=== PATIENT | female | born 1975 | race American Indian/Alaskan Native ===

== ENCOUNTER 2016-12-07 11:37 | Emergency (ER) | payer MEDICARE ==
[2016-12-07 11:58] VITALS: BP 137/87
[2016-12-07] MEDS ORDERED: DELTASONE PO ONE (12:15)
[2016-12-07] MEDS ORDERED: DUONEB 0.5 MG-3 MG/3 ML SOLN IH ONE ×2 (12:16→12:22)
[2016-12-07] MEDS ORDERED: ROBITUSSIN DM PO ONE (12:23)
--- NOTE | 2016-12-07 12:53 | Emergency Department Report ---
Chief Complaint: Adult Asthma Stated Complaint: ASTHMA ATTACK/ CHEST PAIN /TIGHTNESS - HPI History of Present Illness: 41-year-old female past medical history asthma, hysterectomy presents with complaint of one week of worsening asthma exacerbation and wheezing despite using nebulizers at home patient coughing, states she has productive cough, denies fever chills, states that she feels very wheezy right now. Audible wheezing - ROS Review of Systems: 1 week with wheezing - Exam Vital Signs: Vital Signs 12/07/16 12/07/16 11:56 12:35 Temperature 98.1 F Pulse Rate 95 H Pulse Rate [ 82 Left Lower Lobe ] Respiratory 22 Rate Respiratory 18 Rate [Left Lower Lobe] Blood Pressure 137/87 O2 Sat by Pulse 96 Oximetry Physical Exam: Wheezing bilateral lung patterson MSE screening note: Focused history and physical exam performed. Due to findings the following was ordered: Screening Assessment/Plan/Differential Dx: Asthma exacerbation 1- This initial assessment/diagnostic orders/clinical plan/ treatment(s) is/are subject to change based on pt's health status, clinical progression and re- assessment by fellow clinical providers in the ED. Further treatment and workup at subsequent clinical provers discretion. Patient/guardians urged not to elope from ED as their condition may be serious if not clinically assessed and managed. 2-DuoNeb treatments, prednisone by mouth, guaifenesin 3-patient is had multiple hospitalizations in the past for asthma patient for the main ER 4-chest x-ray as patient states she has productive cough ED Disposition for MSE Condition: Stable
--- NOTE | 2016-12-07 13:23 | XRay Report ---
Chest 2 views: History: Worsening cough. Findings: Normal cardiomediastinal silhouette. Trachea is midline. No consolidation, pneumothorax or pleural effusion. Impression: No acute cardiopulmonary findings.
--- NOTE | 2016-12-10 18:34 | ED Elopement Review ---
ED Pt Elopement review - Call Back decision Pt Call Back Decision: Pt to F/U with PMD
== END 2016-12-07 14:43 | disposition left against medical advice (07) ==
LOC: ED 11:37
DX: J45.901 Unspecified asthma with (acute) exacerbation (principal); Z53.21 Procedure and treatment not carried out due to patient leaving prior to being seen by health care provider
CPT/HCPCS: 71020; 93005; 93010; J7512

== ENCOUNTER 2018-03-27 19:03 | Inpatient (IN) | payer MEDICARE ==
[2018-03-27] MEDS ORDERED: PROVENTIL IH ONE ×3 (19:19→20:42)
[2018-03-27] MEDS ORDERED: PULMICORT IH ONE ×2 (19:22→19:37)
--- NOTE | 2018-03-27 19:52 | Emergency Department Report ---
ED Asthma HPI - General Chief Complaint: Dyspnea/Respdistress Stated Complaint: ASTHMA Time Seen by Provider: 03/27/18 19:46 Source: patient Mode of arrival: Ambulatory Limitations: No Limitations - History of Present Illness Initial Comments: This is a pleasant 42-year-old -Citizen Of [place] female who was in her usual state of health until the past 24 hours when she began to have worsening shortness of breath. She does have a history of asthma. She states that she frequently gets asthma attacks. She states that last year around this time she did have an attack that was quite severe and required her to come to the emergency department. She takes albuterol inhalers at home multiple times a day. She states that when she gets an asthma attack she feels tightness in her chest and she coughs. She is not a smoker but she is around secondhand smoke. She does engage in alcohol use socially, and will occasionally have marijuana. She is on disability due to her asthma. Her mainframe analyst is Dr. Jovel in [place]. Complaint: "asthma attack" -: Gradual, days(s) (1) Asthma History: childhood onset Severity: mild Context: other (possible pollen) Associated Symptoms: productive cough, chest pain (due to tightness). denies: fever Treatments Prior to Arrival: inhaled bronchodilator, inhaled steroid - Related Data Home Medications Medication Instructions Recorded Confirmed Last Taken Fluticasone/Salmeterol [Advair 1 puff IH BID 06/19/14 06/22/16 06/21/16 Diskus 250-50 mcg] Montelukast [Singulair] 10 mg PO QPM 06/19/14 06/22/16 06/20/16 Albuterol *Only Ed* [Proventil 2.5 mg IH Q4H PRN 06/09/16 06/22/16 06/22/16 07: 15 0.5% NEBS] traMADol [Ultram] 50 mg PO Q6HR PRN 06/09/16 06/22/16 06/20/16 Previous Rx's Medication Instructions Recorded Last Taken Type ALBUTEROL Inhaler [ProAir HFA 2 puff IH QID PRN #1 inha 06/19/14 06/21/16 Rx Inhaler] Docusate Sodium [Colace] 100 mg PO BID PRN #60 capsule 06/24/16 Unknown Rx Ferrous Sulfate [Feosol 325 MG tab] 325 mg PO TID #90 tablet 06/24/16 Unknown Rx Ibuprofen [Motrin] 800 mg PO Q8HR PRN #30 tablet 06/24/16 Unknown Rx diphenhydrAMINE [Benadryl CAP] 25 mg PO Q6HR PRN #30 capsule 06/24/16 Unknown Rx oxyCODONE /ACETAMINOPHEN [Percocet 1 tab PO Q6HR PRN #40 tablet 06/24/16 Unknown Rx 5/325] Allergies Allergy/AdvReac Type Severity Reaction Status Date / Time morphine Allergy Itching Verified 06/09/16 10:14 ED Review of Systems ROS: Stated complaint: ASTHMA Other details as noted in HPI Comment: All other systems reviewed and negative Constitutional: no symptoms reported Eyes: other (conjunctival erythema in the eyes likely due to pollen) ENT: as per HPI Respiratory: cough, shortness of breath, wheezing Cardiovascular: as per HPI Endocrine: see HPI Gastrointestinal: as per HPI Genitourinary: as per HPI Musculoskeletal: as per HPI Skin: as per HPI Neurological: as per HPI Psychiatric: as per HPI Hematological/Lymphatic: as per HPI ED Past Medical Hx - Past Medical History Hx Congestive Heart Failure: No Hx Diabetes: No Hx Headaches / Migraines: Yes Hx Asthma: Yes Hx COPD: No - Surgical History Past Surgical History?: Yes Additional Surgical History: myomectomy - Social History Smoking Status: Never Smoker Substance Use Type: None - Medications Home Medications: Home Medications Medication Instructions Recorded Confirmed Last Taken Type ALBUTEROL Inhaler [ProAir HFA 2 puff IH QID PRN #1 inha 06/19/14 06/22/16 Rx Inhaler] Fluticasone/Salmeterol [Advair 1 puff IH BID 06/19/14 06/22/16 06/21/16 History Diskus 250-50 mcg] Montelukast [Singulair] 10 mg PO QPM 06/19/14 06/22/16 06/20/16 History Albuterol *Only Ed* [Proventil 2.5 mg IH Q4H PRN 06/09/16 06/22/16 06/22/16 07: 15 History 0.5% NEBS] traMADol [Ultram] 50 mg PO Q6HR PRN 06/09/16 06/22/16 06/20/16 History Docusate Sodium [Colace] 100 mg PO BID PRN #60 capsule 06/24/16 Unknown Rx Ferrous Sulfate [Feosol 325 MG tab] 325 mg PO TID #90 tablet 06/24/16 Unknown Rx Ibuprofen [Motrin] 800 mg PO Q8HR PRN #30 tablet 06/24/16 Unknown Rx diphenhydrAMINE [Benadryl CAP] 25 mg PO Q6HR PRN #30 capsule 06/24/16 Unknown Rx oxyCODONE /ACETAMINOPHEN [Percocet 1 tab PO Q6HR PRN #40 tablet 06/24/16 Unknown Rx 5/325] ED Physical Exam - General Limitations: No Limitations General appearance: in distress (moderate) - Head Head exam: Present: atraumatic - Eye Eye exam: Present: normal appearance, PERRL, EOMI - ENT ENT exam: Present: normal exam - Neck Neck exam: Present: normal inspection - Respiratory Respiratory exam: Present: wheezes (diffuse) - Cardiovascular Cardiovascular Exam: Present: normal rhythm, tachycardia, normal heart sounds - GI/Abdominal GI/Abdominal exam: Present: soft, normal bowel sounds. Absent: distended, tenderness, guarding - Rectal Rectal exam: Present: deferred - Extremities Exam Extremities exam: Present: normal inspection, full ROM - Back Exam Back exam: Present: normal inspection, full ROM - Neurological Exam Neurological exam: Present: alert, oriented X3, CN II-XII intact - Psychiatric Psychiatric exam: Present: normal affect, normal mood - Skin Skin exam: Present: warm, dry, intact, normal color ED Course Vital Signs 03/27/18 03/27/18 03/27/18 19:15 19:36 19:55 Temperature 99.8 F H Pulse Rate 131 H Respiratory 30 H Rate Blood Pressure 125/82 O2 Sat by Pulse 89 89 92 Oximetry 03/27/18 03/27/18 03/27/18 20:01 20:15 20:31 Temperature Pulse Rate Respiratory Rate Blood Pressure O2 Sat by Pulse 93 92 92 Oximetry 03/27/18 03/27/18 03/27/18 20:45 21:01 21:15 Temperature Pulse Rate Respiratory Rate Blood Pressure O2 Sat by Pulse 87 93 94 Oximetry 03/27/18 03/27/18 03/27/18 21:31 21:45 22:01 Temperature Pulse Rate Respiratory Rate Blood Pressure O2 Sat by Pulse 92 94 95 Oximetry 03/27/18 03/27/18 03/27/18 22:15 22:30 22:36 Temperature Pulse Rate 118 H 126 H 118 H Respiratory 23 26 H Rate Blood Pressure 144/117 O2 Sat by Pulse Oximetry - Reevaluation(s) Reevaluation #1: 03/27/18 20:18 Her oxygen saturations are in the high 80s and low 90s. We went ahead and gave her albuterol and an inhaled steroid. Also gave her Solu-Medrol 125 mg IV. We will go ahead and also do a REN Neb. 03/27/18 23:50 The patient had a be placed on BiPAP. Respiratory is here. I discussed the case with the hospitalist. We will go ahead and admit the patient. ED Medical Decision Making - Lab Data Result diagrams: 03/27/18 19:47 03/27/18 19:47 Critical care attestation.: If time is entered above; I have spent that time in minutes in the direct care of this critically ill patient, excluding procedure time. ED Disposition Clinical Impression: Acute asthma exacerbation Qualifiers: Asthma severity: severe Asthma persistence: persistent Qualified Code(s): J45.51 - Severe persistent asthma with (acute) exacerbation Disposition: DC-09 OP ADMIT IP TO THIS HOSP Is pt being admited?: Yes Does the pt Need Aspirin: No Condition: Stable Referrals: PRIMARY CARE, [Primary Care Provider] - 3-5 Days
[2018-03-27 19:56] LABS: Basophils % (Auto) 0.3 % (0.0-1.8); Eosinophils # (Auto) 0.1 K/mm3 (0.0-0.4); Eosinophils % (Auto) 1.8 % (0.0-4.3); Hematocrit 42.5 % (30.3-42.9); Hemoglobin 14.4 gm/dl (10.1-14.3); Lymphocytes # (Auto) 0.5 K/mm3 (1.2-5.4); Mean Corpuscular HGB Conc 34 % (30-34); Mean Corpuscular Hemoglobin 26 pg (28-32); Mean Corpuscular Volume 77 fl (79-97); Monocytes # (Auto) 0.7 K/mm3 (0.0-0.8); Monocytes % (Auto) 9.3 % (0.0-7.3); Platelet Count 188 K/mm3 (140-440); Red Blood Count 5.52 M/mm3 (3.65-5.03); Red Cell Distribution Width 13.6 % (13.2-15.2)
[2018-03-27 20:08] LABS: Alanine Aminotransferase 39 units/L (7-56); Albumin 3.9 g/dL (3.9-5); BUN/Creatinine Ratio 16; Blood Urea Nitrogen 8 mg/dL (7-17); Calcium 9.2 mg/dL (8.4-10.2); Hemolysis Index 7
--- NOTE | 2018-03-27 20:16 | XRay Report ---
FINAL REPORT PROCEDURE: XR CHEST 1V AP TECHNIQUE: Chest radiograph anteroposterior view. CPT 39367 HISTORY: Asthma Attack COMPARISON: No prior studies are available for comparison. FINDINGS: Heart: Normal. Mediastinum/Vessels: Normal. Lungs/Pleural space: Lungs are expanded. There are no infiltrates, effusions or pneumothoraces. Bony thorax: No acute osseous abnormality. Life support devices: None. IMPRESSION: No acute cardiopulmonary abnormality.
[2018-03-27] MEDS ORDERED: ATROVENT IH ONE ×2 (20:44→22:51)
[2018-03-27] MEDS ORDERED: ATIVAN ONE (22:48)
[2018-03-27] MEDS ORDERED: XOPENEX IH ONE (22:51)
[2018-03-28] MEDS ORDERED: ATIVAN IV ONE (00:32)
[2018-03-28] MEDS ORDERED: PROVENTIL IH PRN (01:18)
[2018-03-28] MEDS ORDERED: ZOFRAN IV PRN (01:21)
[2018-03-28] MEDS: HEPARIN SUB-Q SCH ×3 (01:35→21:35)
[2018-03-28] MEDS ORDERED: BENADRYL PO PRN (03:29)
[2018-03-28] MEDS ORDERED: COLACE PO PRN (03:29)
[2018-03-28] MEDS: TYLENOL PO PRN ×2 (03:36→23:09)
[2018-03-28] MEDS: ROBITUSSIN PO PRN ×2 (03:37→09:52)
--- NOTE | 2018-03-28 04:46 | History and Physical Report ---
DATE OF ADMISSION: 03/28/2018 CHIEF COMPLAINT: Shortness of breath. HISTORY OF PRESENT ILLNESS: The patient is a 42-year-old female with history of asthma, who started having shortness of breath 24 hours prior to presentation. The patient said the symptoms became progressively worse and were associated with cough and tightness in the chest. There was no history of fever and no history of chills. No history of nausea or vomiting. The patient said that she has frequent asthma attacks and uses albuterol inhaler at home, but from time to time, she will have these type of attacks, some of which are severe. PAST MEDICAL HISTORY: Pertinent for asthma. PAST SURGICAL HISTORY: Unremarkable. FAMILY HISTORY: Noncontributory. SOCIAL HISTORY: The patient does not smoke cigarettes, but stays around people who smoke. Drinks alcohol occasionally and uses marijuana occasionally. MEDICATIONS: The patient is on Advair Diskus 250/50 mcg 1 puff inhalation twice daily, Singulair 10 mg by mouth every evening, Proventil 2.5 mg inhalation q. 4 hours as needed and tramadol 50 mg q. 6 hours as needed for pain. ALLERGIES: THE PATIENT IS ALLERGIC TO MORPHINE. REVIEW OF SYSTEMS: CONSTITUTIONAL: There is no fever, no chills, no diaphoresis. HEENT: There is no headache or sore throat. CARDIOVASCULAR: There is chest tightness with no orthopnea. RESPIRATORY: Shortness of breath present. No cough. GASTROINTESTINAL: There is no nausea, no vomiting, no abdominal pain, diarrhea or constipation. NEUROLOGICAL: Numbness, no dizziness and no altered mental status. MUSCULOSKELETAL: There is no joint pain or swelling. DERMATOLOGICAL: There is no skin rash or itching. GENITOURINARY: There is no dysuria, hematuria or flank pain. Rest of system review is normal. PHYSICAL EXAMINATION: GENERAL: At the time of exam, the patient was found to be alert, oriented x3 and in mild distress due to shortness of breath. VITAL SIGNS: Shows temperature of 98.7 degrees Fahrenheit, pulse of 125, respirations 24, blood pressure 125/89 and O2 sat of 95% on room air. HEENT: Show pupils to be equal, round and reactive to light and accommodation. Extraocular muscles are intact. NECK: Supple with no JVD or carotid bruit. CARDIOVASCULAR: Showed normal first and second heart sounds with no gallops or murmurs. RESPIRATORY: Show reduced air entry on both sides of the lung with mild expiratory wheezing. GASTROINTESTINAL: Show abdomen to be full, soft and nontender with no organomegaly or rigidity. NEUROLOGIC: Shows no focal deficits. MUSCULOSKELETAL: Show no joint swelling or tenderness. DERMATOLOGIC: Show no skin rash. GENITOURINARY: Showing no costovertebral angle tenderness. PERTINENT LABORATORY AND IMAGING STUDIES: The patient has CBC done that shows normal white count, elevated hemoglobin of 14.4 with normal hematocrit and low MCV of 77% with CBC differential showing low lymphocyte count of 7.0, elevated monocyte count of 9.3% and elevated segmented neutrophil count of 8.6%. The patient's ABG shows a high pH of 7.47, low pCO2 of 31.8 with high pO2 of 170 and this was done on FIO2 of 100%. The patient's chemistry shows slight decrease in potassium of 3.4, otherwise unremarkable. The patient had chest x-ray done that shows no acute cardiopulmonary lesion. DIAGNOSES: 1. Asthma exacerbation. 2. Hypokalemia. PLAN: The patient will be admitted to medical floor remote telemetry and we will continue the BiPAP, started in the Emergency Room. The patient will be on Tylenol 650 mg by mouth every 4 hours for fever and headache and will be on albuterol nebulizer 2.5 mg inhalation every 4 hours as needed for shortness of breath. The patient will be on IV Levaquin 750 mg daily and will be on IV Solu-Medrol 60 mg every 8 hours. The patient will also be on IV Zofran 4 mg every 8 hours for nausea and vomiting. The patient's home medication will be started as shown in the medication reconciliation section. DVT prophylaxis will be through heparin 5000 units subcutaneous q. 12 hours and sequential compressive device as well. The patient will also be on supplementary oxygen, which will be titrated to keep O2 sat above 94% and will receive a dose of potassium 40meq by mouth once.. JOB# [id number] OCN/NTS JORGE AD
[2018-03-28] MEDS: BROVANA NEBU IH SCH ×2 (07:40→20:45)
[2018-03-28] MEDS: PULMICORT IH SCH ×2 (07:40→20:06)
--- NOTE | 2018-03-28 08:05 | Progress Note ---
Assessment and Plan Assessment and plan: 42-year-old female with past medical history significant for asthma was presented to emergency department for the complaints of worsening of shortness of breath. Patient has been taking albuterol puffs is no relief, eczematous department saturation was in the 80s. Patient is complaining persistent cough Acute hypoxic respiratory failure Acute asthma exacerbation - Patient is on IV Solu-Medrol, nebulizers, oxygen support, breathing treatments - Cough syrup DVT prophylaxis Disposition -Possible discharge tomorrow History Interval history: Patient shortness of breath getting better, is showing still complaining of persistent cough Hospitalist Physical - Physical exam Narrative exam: Not in cardiopulmonary distress. The patient appeared well nourished and normally developed. Vital signs as documented. Head exam is unremarkable. No scleral icterus . Neck is without jugular venous distension, thyromegaly, or carotid bruits. Lungs wheezing all over the chest. Cardiac exam reveals regular rate and Rhythm. First and second heart sounds normal. No murmurs, rubs or gallops. Abdominal exam reveals normal bowel sounds, no masses, no organomegaly and no aortic enlargement. Extremities are nonedematous and both femoral and pedal pulses are normal. [employer] INTER[employer]: Alert and oriented 3. No focal weakness. - Constitutional Vitals: Temp Pulse Resp BP Pulse Ox 98.7 F 108 H 20 125/89 96 03/28/18 02:36 03/28/18 07:44 03/28/18 07:44 03/28/18 02:36 03/28/18 07:39 Results - Labs CBC & Chem 7: 03/27/18 19:47 03/27/18 19:47 Labs: Laboratory Last Values WBC 7.3 K/mm3 (4.5-11.0) 03/27/18 19:47 RBC 5.52 M/mm3 (3.65-5.03) H 03/27/18 19:47 Hgb 14.4 gm/dl (10.1-14.3) H 03/27/18 19:47 Hct 42.5 % (30.3-42.9) 03/27/18 19:47 MCV 77 fl (79-97) L 03/27/18 19:47 MCH 26 pg (28-32) L 03/27/18 19:47 MCHC 34 % (30-34) 03/27/18 19:47 RDW 13.6 % (13.2-15.2) 03/27/18 19:47 Plt Count 188 K/mm3 (140-440) 03/27/18 19:47 Lymph % (Auto) 7.0 % (13.4-35.0) L 03/27/18 19:47 [place] % (Auto) 9.3 % (0.0-7.3) H 03/27/18 19:47 Eos % (Auto) 1.8 % (0.0-4.3) 03/27/18 19:47 Baso % (Auto) 0.3 % (0.0-1.8) 03/27/18 19:47 Lymph # 0.5 K/mm3 (1.2-5.4) L 03/27/18 19:47 [place] # 0.7 K/mm3 (0.0-0.8) 03/27/18 19:47 Eos # 0.1 K/mm3 (0.0-0.4) 03/27/18 19:47 Baso # 0.0 K/mm3 (0.0-0.1) 03/27/18 19:47 Seg Neutrophils % 81.6 % (40.0-70.0) H 03/27/18 19:47 Seg Neutrophils # 6.0 K/mm3 (1.8-7.7) 03/27/18 19:47 POC ABG pH 7.476 (7.35-7.45) H 03/27/18 23:37 POC ABG pCO2 31.8 (35-45) L 03/27/18 23:37 POC ABG pO2 170 (80-105) H 03/27/18 23:37 POC ABG HCO3 23.5 03/27/18 23:37 POC ABG Total CO2 24 03/27/18 23:37 POC ABG O2 Sat 100 03/27/18 23:37 POC ABG Base Excess 0 03/27/18 23:37 FiO2 100 % 03/27/18 23:37 Sodium 141 mmol/L (137-145) 03/27/18 19:47 Potassium 3.4 mmol/L (3.6-5.0) L 03/27/18 19:47 Chloride 101.8 mmol/L (98-107) 03/27/18 19:47 Carbon Dioxide 27 mmol/L (22-30) 03/27/18 19:47 Anion Gap 16 mmol/L 03/27/18 19:47 BUN 8 mg/dL (7-17) 03/27/18 19:47 Creatinine 0.5 mg/dL (0.7-1.2) L 03/27/18 19:47 Estimated GFR > 60 ml/min 03/27/18 19:47 BUN/Creatinine Ratio 16 % 03/27/18 19:47 Glucose 100 mg/dL (65-100) 03/27/18 19:47 Calcium 9.2 mg/dL (8.4-10.2) 03/27/18 19:47 Total Bilirubin 0.60 mg/dL (0.1-1.2) 03/27/18 19:47 AST 31 units/L (5-40) 03/27/18 19:47 ALT 39 units/L (7-56) 03/27/18 19:47 Alkaline Phosphatase 75 units/L (35-129) 03/27/18 19:47 Total Protein 7.0 g/dL (6.3-8.2) 03/27/18 19:47 Albumin 3.9 g/dL (3.9-5) 03/27/18 19:47 Albumin/Globulin Ratio 1.3 % 03/27/18 19:47
[2018-03-28] MEDS ORDERED: POTASSIUM CHLORIDE FEEDTUBE ONE (08:30)
[2018-03-28] MEDS: PROVENTIL IH SCH ×4 (08:53→20:06)
[2018-03-28] MEDS: FEOSOL PO SCH ×3 (09:52→21:34)
[2018-03-28] MEDS ORDERED: LEVAQUIN 750MG/150ML 750 MG/150 ML BAG IV SCH (10:00)
[2018-03-28] MEDS ORDERED: NON-FORMULARY (Fluticasone/Salmeterol [Advair Diskus 250-50 Mcg] 1 PUFF) IH SCH (10:00)
[2018-03-28] MEDS ORDERED: SINGULAIR PO SCH (22:00)
[2018-03-29] MEDS: PROVENTIL IH SCH ×5 (02:54→17:11)
[2018-03-29] MEDS: BROVANA NEBU IH SCH (07:56)
[2018-03-29] MEDS: PULMICORT IH SCH (07:57)
[2018-03-29 08:01] VITALS: BP 120/78
[2018-03-29] MEDS: FEOSOL PO SCH ×2 (08:57→18:08)
[2018-03-29] MEDS ORDERED: LEVAQUIN PO SCH (10:00)
[2018-03-29] MEDS: HEPARIN SUB-Q SCH (10:53)
--- NOTE | 2018-03-29 11:08 | Discharge Summary ---
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 Patient has been taking albuterol puffs is no relief, in the emergency department O2 saturation was in the 80s. Patient is complaining persistent cough Patient was treated appropriately for acute hypoxic respiratory failure, acute asthma exacerbation and patient showed improvement and discharged to home in a stable condition. Appropriate medications were given at the time of discharge. Patient was saturating in the mid to upper 90s without any oxygen. Disposition: - TO HOME OR SELFCARE Time spent for discharge: 34 minutes - Discharge Diagnoses (1) Acute asthma exacerbation Status: Acute Qualifiers: Asthma severity: severe Asthma persistence: persistent Qualified Code(s) : J45.51 - Severe persistent asthma with (acute) exacerbation (2) Uterine fibroid Status: Acute Core Measure Documentation - Palliative Care Palliative Care/ Comfort Measures: Not Applicable - Core Measures Any of the following diagnoses?: none Exam - Physical Exam Narrative exam: Not in cardiopulmonary distress. The patient appeared well nourished and normally developed. Vital signs as documented. Head exam is unremarkable. No scleral icterus . Neck is without jugular venous distension, thyromegaly, or carotid bruits. Lungs wheezing all over the chest. Cardiac exam reveals regular rate and Rhythm. First and second heart sounds normal. No murmurs, rubs or gallops. Abdominal exam reveals normal bowel sounds, no masses, no organomegaly and no aortic enlargement. Extremities are nonedematous and both femoral and pedal pulses are normal. MEAL MILLER: Alert and oriented 3. No focal weakness. - Constitutional Vitals: Temp Pulse Resp BP Pulse Ox 97.6 F 99 H 20 120/78 98 03/29/18 07:32 03/29/18 08:35 03/29/18 08:35 03/29/18 07:32 03/29/18 10:57 Plan Activity: no restrictions Weight Bearing Status: Full Weight Bearing Diet: regular Follow up with: IRAIDA BETTENCOURT MD [Primary Care Provider] - 3-5 Days CHRISTINE LI MD [Staff Physician] - 7 Days Prescriptions: guaiFENesin [Robitussin] 200 mg PO Q4H PRN #1 bottle PRN Reason: Cough Levofloxacin [Levaquin TAB] 750 mg PO DAILY #5 tablet methylPREDNISolone [Medrol] 4 mg PO DAILY #21 tab.ds.pk
== END 2018-03-29 14:20 | disposition home or self-care (01) | DRG 189 ==
LOC: ED 19:03 → 3A 03-28 01:14
PROVIDERS: ADMIT Internal Medicine; ATTEND Internal Medicine
PROC: 4A033R1 Measurement of Arterial Saturation, Peripheral, Percutaneous Approach (ICD-10-PCS; principal; 2018-03-28)
PROC: 5A09357 Assistance with Respiratory Ventilation, Less than 24 Consecutive Hours, Continuous Positive Airway Pressure (ICD-10-PCS; 2018-03-28)
DX: J96.01 Acute respiratory failure with hypoxia (principal); J45.901 Unspecified asthma with (acute) exacerbation; E87.6 Hypokalemia; D25.9 Leiomyoma of uterus, unspecified; F12.90 Cannabis use, unspecified, uncomplicated; G43.909 Migraine, unspecified, not intractable, without status migrainosus; Z79.899 Other long term (current) drug therapy; Z88.5 Allergy status to narcotic agent
CPT/HCPCS: 36415; 71045; 80053; 82803; 85025; 93005; 93010; 94640; 94760; 96372; 96374; 96375; J1644; J1956; J2060; J2920; J2930

== ENCOUNTER 2018-11-22 06:11 | Day surgery (SDC) | payer MEDICARE ==
[~2018-11-22 06:11] MED LIST: TETRACAINE 0.5% OD PRN
[2018-11-22] MEDS: VIGAMOX OD SCH ×3 (06:45→06:55)
[2018-11-22] MEDS: AK-Dilate OD SCH ×3 (06:45→06:55)
[2018-11-22] MEDS: MYDRIACYL OD SCH ×3 (06:45→06:55)
[2018-11-22] MEDS ORDERED: SUBLIMAZE ONE (07:08)
[2018-11-22] MEDS ORDERED: VERSED ONE (07:08)
--- NOTE | 2018-11-22 07:33 | Anesthesia Consultation ---
Anesthesia Consult and Med Hx Date of service: 11/22/18 - Airway Anesthetic Teeth Evaluation: Good ROM Head & Neck: Adequate Mental/Hyoid Distance: Adequate Mallampati Class: Class I Intubation Access Assessment: Probably Good - Pulmonary Exam CTA: No (mild expiratory wheezing, albuterol 3 puffs ) - Pulmonary Hx Smoking: Yes Hx Asthma: Yes - Central Nervous System Hx Psychiatric Problems: No - Other Systems Hx Alcohol Use: Yes (occas) Hx Cancer: No
[2018-11-22] MEDS ORDERED: NACL P/F VIAL (10 ML) 10 ML ONE (07:44)
[2018-11-22] MEDS ORDERED: PRED FORTE 1% ONE (08:00)
[2018-11-22] MEDS ORDERED: XYLOCAINE MPF 2% ONE (08:03)
--- NOTE | 2018-11-22 08:06 | Operative Report ---
Operative Report Operative Report: PATIENT'S NAME: DATE OF : DATE OF SURGERY: 11/22/2018 PREOPERATIVE DIAGNOSIS: Cataract right eye POSTOPERATIVE DIAGNOSIS: Same OPERATIVE PROCEDURE: Phacoemulsification with intraocular lens implantation, right eye SURGEON: Ebony Villafana M.D. TELEPHONE LINEMAN SURGEON: Ermelinda Lens: [id number] 19.5 D ANESTHESIA: Monitored anesthesia care in combination with topical and intracameral anesthesia because of the established specific risk of reflux, arrhythmias, or anxiety attacks associated with ocular manipulation, as well as the difficulty of the signal tester to manage such potentially catastrophic events while simultaneously attempting to complete the surgical procedure and was deemed necessary for the patient's safety to have an Wet Trimmer present during the procedure whenever possible. An Wet Trimmer was utilized to regulate the intravenous sedation of the patient so the patient was cooperative yet not asleep in order for the patient to successfully maintain fixation of the eye on the operating light of the microscope. COMPLICATIONS: No surgical complications No blood loss. ALLERGIES: Morphine PROGNOSIS: Excellent INDICATIONS FOR SURGERY: The patient is undergoing surgery in the hopes of eliminating or improving these visual difficulties. PROCEDURE: After arriving at the surgery center, the patient was given topical anesthetic and dilating drops, as noted in the record. The patient was then taken into the operating room and given more anesthetic drops. The eyelids, lashes, and lid margins were scrubbed with Betadine solution, and the patient was draped. The Nurse Wet Trimmer administered IV sedation and monitored the patient during the procedure. The eye was then fixated with a 0.12, and a stab incision was made in the peripheral clear cornea into the anterior chamber. This was made on my left side. Viscoelastic was next used to fill the anterior chamber. The eye was once again fixated with the 0.12 forceps and a keratome was used make an incision in clear cornea peripherally on my right hand side temporally. The capsule forceps were used to open the central anterior capsule and then make a continuous round capsulotomy. Hydrodissection was carried out utilizing a cannula and balanced salt solution to delineate the cortical material from the capsule and the nucleus from the cortical material. The phaco tip was introduced into the eye and used to remove the anterior cortical material in the area of the capsulotomy. Then the phaco tip was buried into the nucleus, and a chopping instrument was introduced into the eye and used to provide countertraction in the nucleus between this instrument and the phaco tip fracturing the nucleus. This procedure was repeated multiple times, providing multiple small segments of the lens, and then the phaco tip was used to remove each of these segments. An I/A tip was then used to remove the remaining cortex. The anterior chamber was refilled with viscoelastic. An one-piece, acrylic intraocular lens was then placed into an inserting cartridge. The tip of the inserting cartridge was introduced into the keratome incision and into the anterior chamber. The implant was gently advanced through the cartridge and into the eye, where it unfolded, and both haptics were placed in the capsular bag, where it centered nicely and appeared to be well fixated. After placement of the intraocular lens, the I~and~A handpiece was placed back into the eye and used to remove the viscoelastic, including viscoelastic that was behind the optic of the intraocular lens. The anterior chamber was then filled with balanced salt solution, and hydration of the wound was used to cause swelling of the wound and more appropriate watertight closure. When the wound was found to be firm, the patient was asked to comment on how bright the light was. If there was no light perception at all or if the light was substantially dimmer than during the rest of the surgery, the amount of fluid in the eye was decompressed to lower the intraocular pressure until the patient could see the bright light again. This was done to avoid any damage or decreased blood flow to the optic nerve. MEDICATIONS APPLIED AT END OF SURGERY: One drop of Pred Forte and Vigamox The patient was given a shield to wear at night and was instructed not to rub or push on the eye. DISCHARGE SUMMARY: The patient was released in stable condition. The patient and those with the patient were given a written sheet of postoperative instructions and counseling on any abnormal laboratory studies. The patient is to see us tomorrow for follow-up in the office and is to call immediately for any difficulties. Ebony Villafana M.D. Date
--- NOTE | 2018-11-22 08:07 | Short Stay Summary ---
Short Stay Documentation Date of service: 11/22/18 - History H&P: obtained from office - Allergies and Medications Current Medications: Allergies morphine Allergy (Verified 11/20/18 13:53) Itching Home Medications Medication Instructions Recorded Confirmed Last Taken Type ALBUTEROL Inhaler (OR & NICU) 2 puff IH QID PRN #1 inha 06/19/14 11/22/18 11/22/18 07:23 Rx [ProAir HFA Inhaler] Montelukast [Singulair] 10 mg PO DAILY 06/19/14 11/22/18 11/20/18 09:00 History Albuterol *Only Ed* [Proventil 2.5 mg IH Q4H PRN 06/09/16 11/22/18 11/22/18 05:00 History 0.5% NEBS] Budesonide/Formoterol Fumarate 10.2 gm IH BID 11/20/18 11/20/18 Unknown History [Symbicort 160-4.5 Mcg Inhaler] Active Medications Acetazolamide (Diamox) 500 mg PO ONCE ONE Stop: 11/22/18 08:06 Moxifloxacin HCl (Vigamox) 1 drops OD Q5M XOCHILT Stop: 11/22/18 23:59 Last Admin: 11/22/18 06:55 Dose: 1 drops Documented by: Phenylephrine HCl (Ak-Dilate) 1 drops OD Q5M XOCHILT Stop: 11/22/18 23:59 Last Admin: 11/22/18 06:55 Dose: 1 drops Documented by: Prednisolone Acetate (Pred Forte 1%) 1 drops OD QID XOCHILT Tetracaine HCl (Tetracaine 0.5%) 1 drops OD Q5M PRN PRN Reason: Anesthesia Stop: 11/22/18 23:59 Last Admin: 11/22/18 06:45 Dose: 1 drops Documented by: Tropicamide (Mydriacyl) 1 drops OD Q5M XOCHILT Stop: 11/22/18 23:59 Last Admin: 11/22/18 06:55 Dose: 1 drops Documented by: - Brief post op/procedure progress note Date of procedure: 11/22/18 Pre-op diagnosis: right cataract Post-op diagnosis: same Procedure: Phacoemulsification with intraocular lens insertion right eye Anesthesia: MAC, local Surgeon: JAYDE BERG Estimated blood loss: none Pathology: none Condition: stable - Disposition Condition at discharge: Good Disposition: [id number] TO HOME OR SELFCARE - Discharge Diagnoses (1) Cortical age-related cataract of right eye Status: Resolved Short Stay Discharge Plan Follow up with: PRIMARY CARE, [Primary Care Provider] - 7 Days
[2018-11-22] MEDS ORDERED: DIAMOX PO ONE (09:00)
[2018-11-22] MEDS ORDERED: PRED FORTE 1% OD SCH (10:00)
[2018-11-22 11:47] VITALS: BP 120/78
== END 2018-11-22 09:20 | disposition home or self-care (01) ==
LOC: OR 06:11
DX: H25.011 Cortical age-related cataract, right eye (principal); G43.909 Migraine, unspecified, not intractable, without status migrainosus; Z88.5 Allergy status to narcotic agent; Z98.41 Cataract extraction status, right eye; Z98.42 Cataract extraction status, left eye; Z90.710 Acquired absence of both cervix and uterus; Z72.89 Other problems related to lifestyle; Z98.890 Other specified postprocedural states
CPT/HCPCS: 66984; J2250; J3010; V2632